=== PATIENT | female | born 1950 | race Caucasian/White ===

== ENCOUNTER 2016-12-26 23:53 | Inpatient (IN) | payer OTHER ==
[~2016-12-26] VITALS: Ht 160 cm; Wt 77.1 kg
[~2016-12-26 23:53] MED LIST: CELE50CA PO; DULO20CA PO; FLUT1DIS3 IH; LORA10CA PO; MONT4GRA PO; QUIN5TAB PO
[2016-12-27] MEDS ORDERED: ONDANSETRON HCL/PF 4 MG/2 ML VIAL IVP ONE (00:30)
[2016-12-27] MEDS ORDERED: IV NS 0.9% 1,000 ML BAG IV ONE ×2 (00:30→03:00)
[2016-12-27] MEDS ORDERED: MORPHINE SULFATE INJ 2 MG/ML DISP.SYRIN IV ONE (00:30)
[2016-12-27] MEDS ORDERED: MORPHINE SULFATE INJ 2 MG/ML DISP.SYRIN ONE ×2 (00:38→00:39)
[2016-12-27] MEDS ORDERED: MORPHINE SULFATE INJ 4 MG/ML DISP.SYRIN ONE (00:38)
[2016-12-27] MEDS ORDERED: IV NS 0.9% 1,000 ML ONE (00:39)
[2016-12-27] MEDS ORDERED: IV SET PRIMARY 1 EA INFUS.SET MC ONE (00:39)
[2016-12-27] MEDS ORDERED: ONDANSETRON HCL/PF 4 MG/2 ML VIAL ONE (00:39)
[2016-12-27 00:48] LABS: BASOPHILS % (AUTO) 0.1 % (0.0-2.0); DIFF TOTAL % 100 %; HEMATOCRIT 36 % (33-45); HEMOGLOBIN 12.2 g/dL (11.5-14.8); LYMPHOCYTES # (AUTO) 0.4 /CMM (0.8-4.8); LYMPHOCYTES % (AUTO) 1.9 % (20.0-44.0); MEAN CORPUSCULAR HEMOGLOBIN 29 PG (26.0-33.0); MEAN CORPUSCULAR HGB CONC 34 g/dl (31.0-36.0); MEAN CORPUSCULAR VOLUME 85 fL (82-100); MONOCYTES # (AUTO) 0.2 /CMM (0.1-1.30); MONOCYTES % (AUTO) 0.9 % (2.0-12.0); NEUTROPHILS # (AUTO) 20.8 /CMM (1.8-8.9); NEUTROPHILS % (AUTO) 97.1 % (43.0-81.0); PLATELET COUNT (AUTO) 461 /CMM (150-450); RED BLOOD CELL COUNT(AUTO) 4.22 MIL/uL (4.0-5.2); WHITE BLOOD COUNT (AUTO) 21.5 K/uL (4.3-11.0)
[2016-12-27 01:04] LABS: CALCIUM, SERUM 9.3 mg/dL (8.5-10.1); POTASSIUM 2.9 mmol/L (3.5-5.1)
[2016-12-27 01:09] LABS: ALBUMIN 3.6 g/dL (3.4-5.0); BILIRUBIN,DIRECT 0.2 mg/dL (0.0-0.2); BILIRUBIN,TOTAL 0.8 mg/dL (0.2-1.0); INDIRECT BILIRUBIN 0.6 mg/dL (0.0-1.1); TOTAL PROTEIN, SERUM 7.6 g/dL (6.4-8.2)
[2016-12-27 01:31] LABS: BAND % (MANUAL) 7 % (0.0-5.0); LYMPHOCYTES % (MANUAL) 4 % (16-48); PLATELET ESTIMATE ADEQUATE
[2016-12-27] MEDS ORDERED: CEFTRIAXONE 1GM BAG (ER ONLY) 50 ML IV ONE ×2 (02:39→03:00)
[2016-12-27] MEDS ORDERED: SECONDARY IV SET 1 EA INFUS.SET MC ONE ×6 (02:40→20:54)
[2016-12-27] MEDS ORDERED: IV SET PRIMARY PUMP SET 1 EA INFUS.SET MC ONE ×2 (02:40→04:50)
[2016-12-27] MEDS ORDERED: IV NS 0.9% 500 ML IV ONE (02:40)
[2016-12-27] MEDS ORDERED: IV NS 0.9% 2,000 ML ONE (02:40)
[2016-12-27 03:14] LABS: KETONES,URINE 1+ (NEGATIVE); LEUKOCYTE ESTERASE ,URINE 2+ (NEGATIVE)
[2016-12-27 03:15] LABS: ADD UA MICROSCOPIC YES
[2016-12-27 03:24] LABS: ADD URINE CULTURE YES; WBC,URINE 50-60 /HPF (0-3)
[2016-12-27] MEDS ORDERED: POTASSIUM CHLORIDE 20 MEQ TAB.PRT.SR PO ONE ×2 (03:30→03:47)
[2016-12-27 03:39] LABS: LACTIC ACID 3.5 mmol/L (0.4-2.0)
[2016-12-27 04:00] VITALS: BP 135/80
[2016-12-27 04:04] LABS: *LACTIC ACID REFLEX FLAG YES
[2016-12-27] MEDS ORDERED: IV NS 0.9% 1,000 ML IV PRN (04:14)
[2016-12-27] MEDS ORDERED: ONDANSETRON HCL/PF 4 MG/2 ML VIAL IVP PRN (04:30)
[2016-12-27] MEDS ORDERED: ZOLPIDEM TARTRATE 5 MG TABLET PO PRN (04:30)
[2016-12-27] MEDS ORDERED: GENTAMICIN 80 MG/2 ML VIAL ONE (04:51)
[2016-12-27] MEDS ORDERED: MEROPENEM 1 G VIAL IV ONE (04:52)
[2016-12-27] MEDS ORDERED: GENTAMICIN 120 MG in IV D5W 100 ML IV ONE (05:00)
[2016-12-27] MEDS ORDERED: IV NS 0.9% 100 ML IV ONE (05:00)
[2016-12-27] MEDS ORDERED: IV D5W 100 ML IV ONE (05:00)
[2016-12-27] MEDS: MEROPENEM 1 G in IV NS 0.9% 100 ML IV SCH ×3 (05:11→20:58)
[2016-12-27] MEDS ORDERED: HYDROCODONE/APAP 5/325MG 1 EACH TABLET ONE (05:17)
[2016-12-27] MEDS: HYDROCODONE/APAP 5/325MG 1 EACH TABLET PO PRN ×2 (05:20→09:10)
[2016-12-27 05:27] LABS: DIFF TOTAL % 100 %; HEMATOCRIT 33 % (33-45); HEMOGLOBIN 10.8 g/dL (11.5-14.8); LYMPHOCYTES # (AUTO) 0.9 /CMM (0.8-4.8); LYMPHOCYTES % (AUTO) 4.6 % (20.0-44.0); MEAN CORPUSCULAR HEMOGLOBIN 29 PG (26.0-33.0); MEAN CORPUSCULAR HGB CONC 33 g/dl (31.0-36.0); MEAN CORPUSCULAR VOLUME 87 fL (82-100); MONOCYTES % (AUTO) 5.2 % (2.0-12.0); NEUTROPHILS # (AUTO) 17.7 /CMM (1.8-8.9); NEUTROPHILS % (AUTO) 90.2 % (43.0-81.0); PLATELET COUNT (AUTO) 421 /CMM (150-450); RED BLOOD CELL COUNT(AUTO) 3.81 MIL/uL (4.0-5.2); WHITE BLOOD COUNT (AUTO) 19.7 K/uL (4.3-11.0)
[2016-12-27 05:39] LABS: CALCIUM, SERUM 8.5 mg/dL (8.5-10.1); PHOSPHORUS 2.1 mg/dL (2.5-4.9); POTASSIUM 3.1 mmol/L (3.5-5.1)
[2016-12-27 08:00] VITALS: BP 124/62
[2016-12-27] MEDS: DULOXETINE HCL 20 MG CAPSULE.DR PO SCH (08:32)
[2016-12-27] MEDS: PANTOPRAZOLE 40 MG TABLET.DR PO SCH (08:32)
[2016-12-27] MEDS: LORATADINE 10 MG TABLET PO SCH (08:32)
[2016-12-27] MEDS: CELECOXIB 100 MG CAPSULE PO SCH (09:00)
[2016-12-27] MEDS ORDERED: VANCOMYCIN 1 GM in IV D5W 250 ML IV SCH (09:00)
[2016-12-27] MEDS: FLUTICASONE/SALMETEROL DISKUS IH SCH ×2 (09:00→09:11)
[2016-12-27] MEDS: ALBUTEROL FS 2.5 MG/0.5 ML VIAL.NEB NEB SCH ×5 (09:50→23:30)
[2016-12-27] MEDS: IPRATROPIUM NEB FS 0.5 MG/2.5 ML AMPUL.NEB NEB SCH ×5 (09:50→23:30)
[2016-12-27] MEDS ORDERED: OXYC10TA72 PO (10:30)
[2016-12-27] MEDS ORDERED: METH500T6 PO (10:30)
[2016-12-27] MEDS ORDERED: OXYC10TA49 PO (10:30)
[2016-12-27] MEDS ORDERED: HYDR25TA4 PO (10:30)
[2016-12-27] MEDS ORDERED: BUDE90AE INH (10:30)
[2016-12-27] MEDS ORDERED: METF500T4 PO (10:30)
[2016-12-27] MEDS ORDERED: QUIN20TA31 PO (10:30)
[2016-12-27] MEDS ORDERED: MONT10TA22 PO (10:30)
[2016-12-27] MEDS ORDERED: FLUT9.9S BNOSTRILS (10:30)
[2016-12-27] MEDS ORDERED: DULO30CA51 PO (10:30)
[2016-12-27] MEDS ORDERED: [UNRECOGNIZED DRUG - CODE] PO (10:30)
[2016-12-27] MEDS: MORPHINE SULFATE INJ 2 MG/ML DISP.SYRIN IM PRN ×2 (10:59→15:35)
[2016-12-27] MEDS: QUINAPRIL PO SCH (11:30)
[2016-12-27] MEDS ORDERED: Potassium Phosphate meq 11 MEQ in IV D5W 100 ML IV ONE (12:00)
[2016-12-27] MEDS: Magnesium 1GM/D5W 100ML PREMIX 100 ML IV SCH ×2 (12:02→15:35)
[2016-12-27 16:00] VITALS: BP 106/67
[2016-12-27] MEDS ORDERED: FEE PK DOSING 1 MIN EA MC ONE (16:35)
[2016-12-27] MEDS ORDERED: Z GUARD REMEDY 4 OZ OINT TP PRN (18:30)
[2016-12-27] MEDS: MORPHINE SULFATE INJ 2 MG/ML DISP.SYRIN IV PRN ×2 (19:04→22:02)
[2016-12-27 20:00] VITALS: BP 135/73
[2016-12-27] MEDS: oxyCODONE HCL SR 10MG TAB.SR.12H PO SCH (21:00)
[2016-12-27] MEDS: VANCOMYCIN 0.75 GM in IV D5W 250 ML IV SCH (21:03)
[2016-12-27] MEDS ORDERED: SENNOSIDES 8.6 MG TABLET ONE (21:22)
[2016-12-27] MEDS: BLOOD SUGAR DIAGNOSTIC 1 EACH STRIP IN SCH (21:56)
[2016-12-27] MEDS: SENNOSIDES 8.6 MG TABLET PO SCH (21:57)
[2016-12-27] MEDS ORDERED: MONTELUKAST SODIUM (10MG) 10 MG TABLET PO SCH (22:00)
[2016-12-27] MEDS: MONTELUKAST SODIUM (10MG) 10 MG TABLET PO SCH (22:00)
[2016-12-27] MEDS: ACETAMINOPHEN 325 MG TABLET PO PRN (23:41)
[2016-12-28] MEDS: MORPHINE SULFATE INJ 2 MG/ML DISP.SYRIN IV PRN ×5 (02:54→20:08)
[2016-12-28] MEDS: IV NS 0.9% 1,000 ML IV PRN ×2 (02:55→14:37)
[2016-12-28] MEDS: ALBUTEROL FS 2.5 MG/0.5 ML VIAL.NEB NEB SCH ×6 (03:30→23:30)
[2016-12-28] MEDS: IPRATROPIUM NEB FS 0.5 MG/2.5 ML AMPUL.NEB NEB SCH ×6 (03:30→23:30)
[2016-12-28 04:00] VITALS: BP 131/54
[2016-12-28] MEDS: MEROPENEM 1 G in IV NS 0.9% 100 ML IV SCH ×3 (05:23→21:30)
[2016-12-28 07:10] LABS: BASOPHILS % (AUTO) 0.3 % (0.0-2.0); DIFF TOTAL % 100 %; EOSINOPHILS # (AUTO) 0.1 /CMM (0.0-0.7); EOSINOPHILS % (AUTO) 0.5 % (0.0-6.0); HEMATOCRIT 31 % (33-45); HEMOGLOBIN 10.4 g/dL (11.5-14.8); LYMPHOCYTES # (AUTO) 1.3 /CMM (0.8-4.8); LYMPHOCYTES % (AUTO) 9.3 % (20.0-44.0); MEAN CORPUSCULAR HEMOGLOBIN 29 PG (26.0-33.0); MEAN CORPUSCULAR HGB CONC 33 g/dl (31.0-36.0); MEAN CORPUSCULAR VOLUME 87 fL (82-100); MONOCYTES # (AUTO) 1.2 /CMM (0.1-1.30); MONOCYTES % (AUTO) 8.5 % (2.0-12.0); NEUTROPHILS # (AUTO) 11.5 /CMM (1.8-8.9); NEUTROPHILS % (AUTO) 81.4 % (43.0-81.0); PLATELET COUNT (AUTO) 295 /CMM (150-450); RED BLOOD CELL COUNT(AUTO) 3.63 MIL/uL (4.0-5.2); WHITE BLOOD COUNT (AUTO) 14.2 K/uL (4.3-11.0)
[2016-12-28 07:33] LABS: ALBUMIN 2.6 g/dL (3.4-5.0); BILIRUBIN,TOTAL 0.3 mg/dL (0.2-1.0); CALCIUM, SERUM 8.7 mg/dL (8.5-10.1); CREATININE 0.7 mg/dL (0.6-1.3); PHOSPHORUS 3.5 mg/dL (2.5-4.9); POTASSIUM 3.3 mmol/L (3.5-5.1); TOTAL PROTEIN, SERUM 6.4 g/dL (6.4-8.2)
[2016-12-28 08:00] VITALS: BP 147/82
[2016-12-28] MEDS ORDERED: QUINAPRIL HCL 10 MG TABLET PO SCH (09:00)
[2016-12-28] MEDS: FLUTICASONE/SALMETEROL DISKUS IH SCH (09:00)
[2016-12-28] MEDS ORDERED: DULOXETINE HCL 30 MG CAPSULE.DR PO SCH (09:00)
[2016-12-28] MEDS: CELECOXIB 100 MG CAPSULE PO SCH (09:00)
[2016-12-28] MEDS: BOOST GLUCOSE CONTROL VANILLA 237 ML BOX PO SCH ×2 (09:02→16:56)
[2016-12-28] MEDS: VANCOMYCIN 0.75 GM in IV D5W 250 ML IV SCH (09:02)
[2016-12-28] MEDS: BLOOD SUGAR DIAGNOSTIC 1 EACH STRIP IN SCH ×4 (09:02→21:59)
[2016-12-28] MEDS: LACTAID 1 TAB TABLET PO SCH ×3 (09:04→17:46)
[2016-12-28] MEDS: PANTOPRAZOLE 40 MG TABLET.DR PO SCH (09:05)
[2016-12-28] MEDS: oxyCODONE HCL SR 10MG TAB.SR.12H PO SCH ×2 (09:05→21:00)
[2016-12-28] MEDS: DULOXETINE HCL 20 MG CAPSULE.DR PO SCH (09:06)
[2016-12-28] MEDS: LORATADINE 10 MG TABLET PO SCH (09:06)
[2016-12-28] MEDS: HYDROCHLOROTHIAZIDE 25 MG TABLET PO SCH (09:08)
[2016-12-28 09:18] LABS: THYROID STIMULATING HORMONE 1.415 uIU/mL (0.358-3.74)
[2016-12-28] MEDS ORDERED: DULOXETINE HCL 30 MG CAPSULE.DR PO ONE (10:15)
[2016-12-28] MEDS ORDERED: POTASSIUM CHLORIDE 20 MEQ TAB.PRT.SR PO ONE (10:30)
[2016-12-28] MEDS: METFORMIN 500 MG TABLET PO SCH ×2 (11:19→16:57)
[2016-12-28] MEDS: QUINAPRIL PO SCH (11:19)
[2016-12-28] MEDS: METHOCARBAMOL (500MG) 500 MG TABLET PO PRN ×2 (12:28→16:56)
[2016-12-28] MEDS: LOPREEZA PO SCH (12:57)
[2016-12-28] MEDS: ACETAMINOPHEN 325 MG TABLET PO PRN (13:01)
[2016-12-28 16:00] VITALS: BP 105/60
[2016-12-28] MEDS ORDERED: ENOXAPARIN SODIUM 30 MG/0.3 ML DISP.SYRIN SQ SCH (16:00)
[2016-12-28] MEDS: oxyCODONE IR immediate release 5 MG CAPSULE PO PRN (16:56)
[2016-12-28 20:00] VITALS: BP 116/79
[2016-12-28] MEDS: BISACODYL (5 MG) 5 MG TABLET.DR PO PRN (21:30)
[2016-12-28] MEDS: ENOXAPARIN SODIUM 40 MG/0.4 ML DISP.SYRIN SQ SCH (21:30)
[2016-12-28] MEDS: MONTELUKAST SODIUM (10MG) 10 MG TABLET PO SCH (21:30)
[2016-12-28] MEDS: SENNOSIDES 8.6 MG TABLET PO SCH (21:31)
[2016-12-28] MEDS: VANCOMYCIN 1 GM in IV D5W 250 ML IV SCH (21:59)
[2016-12-29] MEDS: IV NS 0.9% 1,000 ML IV PRN ×2 (00:46→13:07)
[2016-12-29] MEDS: MORPHINE SULFATE INJ 2 MG/ML DISP.SYRIN IV PRN (02:08)
[2016-12-29 04:00] VITALS: BP 142/82
[2016-12-29] MEDS: ALBUTEROL FS 2.5 MG/0.5 ML VIAL.NEB NEB SCH ×6 (04:00→23:12)
[2016-12-29] MEDS: IPRATROPIUM NEB FS 0.5 MG/2.5 ML AMPUL.NEB NEB SCH ×6 (04:00→23:12)
[2016-12-29] MEDS: ACETAMINOPHEN 325 MG TABLET PO PRN (04:03)
[2016-12-29] MEDS: MEROPENEM 1 G in IV NS 0.9% 100 ML IV SCH ×2 (04:50→13:07)
[2016-12-29] MEDS: BLOOD SUGAR DIAGNOSTIC 1 EACH STRIP IN SCH ×4 (06:39→21:02)
[2016-12-29 06:56] LABS: BASOPHILS % (AUTO) 0.3 % (0.0-2.0); DIFF TOTAL % 100 %; EOSINOPHILS # (AUTO) 0.2 /CMM (0.0-0.7); EOSINOPHILS % (AUTO) 1.8 % (0.0-6.0); HEMATOCRIT 29 % (33-45); HEMOGLOBIN 9.8 g/dL (11.5-14.8); LYMPHOCYTES # (AUTO) 1.2 /CMM (0.8-4.8); LYMPHOCYTES % (AUTO) 13.6 % (20.0-44.0); MEAN CORPUSCULAR HEMOGLOBIN 29 PG (26.0-33.0); MEAN CORPUSCULAR HGB CONC 34 g/dl (31.0-36.0); MEAN CORPUSCULAR VOLUME 86 fL (82-100); MONOCYTES # (AUTO) 0.7 /CMM (0.1-1.30); MONOCYTES % (AUTO) 8.4 % (2.0-12.0); NEUTROPHILS # (AUTO) 6.6 /CMM (1.8-8.9); NEUTROPHILS % (AUTO) 75.9 % (43.0-81.0); PLATELET COUNT (AUTO) 248 /CMM (150-450); RED BLOOD CELL COUNT(AUTO) 3.42 MIL/uL (4.0-5.2); WHITE BLOOD COUNT (AUTO) 8.6 K/uL (4.3-11.0)
[2016-12-29 08:00] VITALS: BP_SYST 140; BP_SYST 149; BP_DIAS 87
[2016-12-29] MEDS: METFORMIN 500 MG TABLET PO SCH ×2 (08:49→17:17)
[2016-12-29] MEDS: oxyCODONE HCL SR 10MG TAB.SR.12H PO SCH ×2 (08:51→20:54)
[2016-12-29] MEDS: CELECOXIB 100 MG CAPSULE PO SCH (08:52)
[2016-12-29] MEDS: LORATADINE 10 MG TABLET PO SCH (08:52)
[2016-12-29] MEDS: PANTOPRAZOLE 40 MG TABLET.DR PO SCH (08:52)
[2016-12-29] MEDS: DULOXETINE HCL 30 MG CAPSULE.DR PO SCH (08:53)
[2016-12-29] MEDS: HYDROCHLOROTHIAZIDE 25 MG TABLET PO SCH (08:53)
[2016-12-29] MEDS: BOOST GLUCOSE CONTROL VANILLA 237 ML BOX PO SCH ×2 (08:54→17:20)
[2016-12-29] MEDS: LACTAID 1 TAB TABLET PO SCH ×3 (08:54→17:17)
[2016-12-29] MEDS: FLUTICASONE/SALMETEROL DISKUS IH SCH (08:54)
[2016-12-29] MEDS: FLUTICASONE PROPIONATE 16 GM BOTTLE NS SCH (08:55)
[2016-12-29 09:40] LABS: CALCIUM, SERUM 8.9 mg/dL (8.5-10.1); CREATININE 0.7 mg/dL (0.6-1.3); POTASSIUM 3.4 mmol/L (3.5-5.1)
[2016-12-29] MEDS: QUINAPRIL PO SCH (10:30)
[2016-12-29] MEDS: LOPREEZA PO SCH (10:30)
[2016-12-29] MEDS: VANCOMYCIN 1 GM in IV D5W 250 ML IV SCH (10:39)
[2016-12-29] MEDS: oxyCODONE IR immediate release 5 MG CAPSULE PO PRN (14:45)
[2016-12-29 16:00] VITALS: BP 115/62
[2016-12-29] MEDS ORDERED: SECONDARY IV SET 1 EA INFUS.SET MC ONE (17:11)
[2016-12-29] MEDS: LEVOFLOXACIN 500 MG /D5W 100ML 500 MG in PREMIX 1 EA IV SCH (17:17)
[2016-12-29] MEDS: PULMICORT FLEXHALER INH SCH (17:20)
[2016-12-29] MEDS ORDERED: [UNRECOGNIZED DRUG - OTHER] INH SCH (18:00)
[2016-12-29] MEDS ORDERED: BUDESONIDE INH SCH (18:00)
[2016-12-29 20:00] VITALS: BP_SYST 107; BP_SYST 118; BP_SYST 96; BP_DIAS 52; BP_DIAS 68
[2016-12-29] MEDS: METHOCARBAMOL (500MG) 500 MG TABLET PO PRN (21:00)
[2016-12-29] MEDS: ENOXAPARIN SODIUM 40 MG/0.4 ML DISP.SYRIN SQ SCH (21:00)
[2016-12-29] MEDS: MONTELUKAST SODIUM (10MG) 10 MG TABLET PO SCH (21:03)
[2016-12-29] MEDS: SENNOSIDES 8.6 MG TABLET PO SCH (21:03)
[2016-12-30] MEDS: IPRATROPIUM NEB FS 0.5 MG/2.5 ML AMPUL.NEB NEB SCH ×6 (03:30→23:30)
[2016-12-30] MEDS: ALBUTEROL FS 2.5 MG/0.5 ML VIAL.NEB NEB SCH ×6 (03:30→23:30)
[2016-12-30 04:00] VITALS: BP 158/80
[2016-12-30] MEDS: METHOCARBAMOL (500MG) 500 MG TABLET PO PRN (05:31)
[2016-12-30] MEDS: oxyCODONE IR immediate release 5 MG CAPSULE PO PRN ×2 (05:31→11:43)
[2016-12-30] MEDS: BLOOD SUGAR DIAGNOSTIC 1 EACH STRIP IN SCH ×4 (06:51→21:11)
[2016-12-30 08:00] VITALS: BP 124/83
[2016-12-30] MEDS: BOOST GLUCOSE CONTROL VANILLA 237 ML BOX PO SCH ×2 (08:00→17:00)
[2016-12-30 08:11] LABS: BASOPHILS % (AUTO) 0.2 % (0.0-2.0); DIFF TOTAL % 100 %; EOSINOPHILS # (AUTO) 0.3 /CMM (0.0-0.7); EOSINOPHILS % (AUTO) 4.7 % (0.0-6.0); HEMATOCRIT 29 % (33-45); HEMOGLOBIN 9.9 g/dL (11.5-14.8); LYMPHOCYTES # (AUTO) 1.4 /CMM (0.8-4.8); LYMPHOCYTES % (AUTO) 18.7 % (20.0-44.0); MEAN CORPUSCULAR HEMOGLOBIN 29 PG (26.0-33.0); MEAN CORPUSCULAR HGB CONC 34 g/dl (31.0-36.0); MEAN CORPUSCULAR VOLUME 86 fL (82-100); MONOCYTES % (AUTO) 13.2 % (2.0-12.0); NEUTROPHILS # (AUTO) 4.6 /CMM (1.8-8.9); NEUTROPHILS % (AUTO) 63.2 % (43.0-81.0); PLATELET COUNT (AUTO) 373 /CMM (150-450); RED BLOOD CELL COUNT(AUTO) 3.44 MIL/uL (4.0-5.2); WHITE BLOOD COUNT (AUTO) 7.3 K/uL (4.3-11.0)
[2016-12-30 08:16] LABS: CALCIUM, SERUM 9.3 mg/dL (8.5-10.1); CREATININE 0.7 mg/dL (0.6-1.3); POTASSIUM 3.4 mmol/L (3.5-5.1)
[2016-12-30] MEDS: FLUTICASONE/SALMETEROL DISKUS IH SCH (08:38)
[2016-12-30] MEDS: FLUTICASONE PROPIONATE 16 GM BOTTLE NS SCH (08:39)
[2016-12-30] MEDS: LOPREEZA PO SCH (08:39)
[2016-12-30] MEDS: QUINAPRIL PO SCH (08:40)
[2016-12-30] MEDS: LACTAID 1 TAB TABLET PO SCH ×3 (08:41→18:10)
[2016-12-30] MEDS: PULMICORT FLEXHALER INH SCH ×2 (08:42→16:52)
[2016-12-30] MEDS: PANTOPRAZOLE 40 MG TABLET.DR PO SCH (08:42)
[2016-12-30] MEDS: LORATADINE 10 MG TABLET PO SCH (08:43)
[2016-12-30] MEDS: CELECOXIB 100 MG CAPSULE PO SCH (08:43)
[2016-12-30] MEDS: METFORMIN 500 MG TABLET PO SCH ×2 (08:43→16:52)
[2016-12-30] MEDS: DULOXETINE HCL 30 MG CAPSULE.DR PO SCH (08:43)
[2016-12-30] MEDS: oxyCODONE HCL SR 10MG TAB.SR.12H PO SCH ×2 (08:44→20:02)
[2016-12-30] MEDS: HYDROCHLOROTHIAZIDE 25 MG TABLET PO SCH (08:46)
[2016-12-30] MEDS ORDERED: POTASSIUM CHLORIDE 20 MEQ TAB.PRT.SR PO SCH (11:30)
[2016-12-30] MEDS: LEVOFLOXACIN 500 MG /D5W 100ML 500 MG in PREMIX 1 EA IV SCH (16:51)
[2016-12-30] MEDS: MORPHINE SULFATE INJ 2 MG/ML DISP.SYRIN IV PRN (16:53)
[2016-12-30 20:00] VITALS: BP 130/77
[2016-12-30] MEDS: ENOXAPARIN SODIUM 40 MG/0.4 ML DISP.SYRIN SQ SCH (20:01)
[2016-12-30] MEDS ORDERED: MORPHINE SULFATE INJ 2 MG/ML DISP.SYRIN IV PRN (21:00)
[2016-12-30] MEDS: SENNOSIDES 8.6 MG TABLET PO SCH (21:08)
[2016-12-30] MEDS: MONTELUKAST SODIUM (10MG) 10 MG TABLET PO SCH (21:08)
[2016-12-31] MEDS: oxyCODONE IR immediate release 5 MG CAPSULE PO PRN ×2 (00:20→06:41)
[2016-12-31] MEDS: ALBUTEROL FS 2.5 MG/0.5 ML VIAL.NEB NEB SCH ×6 (03:30→23:30)
[2016-12-31] MEDS: IPRATROPIUM NEB FS 0.5 MG/2.5 ML AMPUL.NEB NEB SCH ×6 (03:30→23:30)
[2016-12-31 04:00] VITALS: BP 120/67
[2016-12-31] MEDS: BLOOD SUGAR DIAGNOSTIC 1 EACH STRIP IN SCH ×4 (06:36→22:00)
[2016-12-31 07:24] LABS: BASOPHILS % (AUTO) 0.2 % (0.0-2.0); DIFF TOTAL % 100 %; EOSINOPHILS # (AUTO) 0.3 /CMM (0.0-0.7); HEMATOCRIT 31 % (33-45); HEMOGLOBIN 10.5 g/dL (11.5-14.8); LYMPHOCYTES % (AUTO) 18.8 % (20.0-44.0); MEAN CORPUSCULAR HEMOGLOBIN 29 PG (26.0-33.0); MEAN CORPUSCULAR HGB CONC 34 g/dl (31.0-36.0); MEAN CORPUSCULAR VOLUME 85 fL (82-100); MONOCYTES # (AUTO) 1.7 /CMM (0.1-1.30); MONOCYTES % (AUTO) 15.5 % (2.0-12.0); NEUTROPHILS # (AUTO) 6.8 /CMM (1.8-8.9); NEUTROPHILS % (AUTO) 62.5 % (43.0-81.0); PLATELET COUNT (AUTO) 301 /CMM (150-450); RED BLOOD CELL COUNT(AUTO) 3.68 MIL/uL (4.0-5.2); WHITE BLOOD COUNT (AUTO) 10.8 K/uL (4.3-11.0)
[2016-12-31 08:00] VITALS: BP 138/86
[2016-12-31] MEDS: BOOST GLUCOSE CONTROL VANILLA 237 ML BOX PO SCH ×2 (08:00→17:00)
[2016-12-31 08:22] LABS: CALCIUM, SERUM 8.9 mg/dL (8.5-10.1); POTASSIUM 3.5 mmol/L (3.5-5.1)
[2016-12-31] MEDS: PANTOPRAZOLE 40 MG TABLET.DR PO SCH (08:59)
[2016-12-31] MEDS: LACTAID 1 TAB TABLET PO SCH ×3 (08:59→17:28)
[2016-12-31] MEDS: PULMICORT FLEXHALER INH SCH ×2 (09:00→17:26)
[2016-12-31] MEDS: CELECOXIB 100 MG CAPSULE PO SCH (09:00)
[2016-12-31] MEDS: FLUTICASONE PROPIONATE 16 GM BOTTLE NS SCH (09:00)
[2016-12-31] MEDS: FLUTICASONE/SALMETEROL DISKUS IH SCH (09:00)
[2016-12-31] MEDS: METFORMIN 500 MG TABLET PO SCH ×2 (09:01→17:26)
[2016-12-31] MEDS: LORATADINE 10 MG TABLET PO SCH (09:01)
[2016-12-31] MEDS: DULOXETINE HCL 30 MG CAPSULE.DR PO SCH (09:01)
[2016-12-31] MEDS: LOPREEZA PO SCH (09:01)
[2016-12-31] MEDS: HYDROCHLOROTHIAZIDE 25 MG TABLET PO SCH (09:03)
[2016-12-31] MEDS: oxyCODONE HCL SR 10MG TAB.SR.12H PO SCH ×2 (09:04→20:22)
[2016-12-31] MEDS: QUINAPRIL PO SCH (12:33)
[2016-12-31] MEDS: BISACODYL (5 MG) 5 MG TABLET.DR PO PRN (12:33)
[2016-12-31 16:00] VITALS: BP 135/75
[2016-12-31] MEDS: LEVOFLOXACIN 500 MG /D5W 100ML 500 MG in PREMIX 1 EA IV SCH (17:26)
[2016-12-31 20:00] VITALS: BP 120/76
[2016-12-31] MEDS: MONTELUKAST SODIUM (10MG) 10 MG TABLET PO SCH (21:35)
[2016-12-31] MEDS: SENNOSIDES 8.6 MG TABLET PO SCH (21:36)
[2016-12-31] MEDS: ENOXAPARIN SODIUM 40 MG/0.4 ML DISP.SYRIN SQ SCH (21:37)
[2017-01-01] MEDS: IPRATROPIUM NEB FS 0.5 MG/2.5 ML AMPUL.NEB NEB SCH ×4 (03:30→15:30)
[2017-01-01] MEDS: ALBUTEROL FS 2.5 MG/0.5 ML VIAL.NEB NEB SCH ×4 (03:30→15:30)
[2017-01-01 04:00] VITALS: BP 115/58
[2017-01-01] MEDS: PANTOPRAZOLE 40 MG TABLET.DR PO SCH (06:33)
[2017-01-01 06:57] LABS: BASOPHILS % (AUTO) 0.2 % (0.0-2.0); DIFF TOTAL % 100 %; EOSINOPHILS # (AUTO) 0.3 /CMM (0.0-0.7); EOSINOPHILS % (AUTO) 2.8 % (0.0-6.0); HEMATOCRIT 33 % (33-45); LYMPHOCYTES # (AUTO) 1.9 /CMM (0.8-4.8); LYMPHOCYTES % (AUTO) 18.8 % (20.0-44.0); MEAN CORPUSCULAR HEMOGLOBIN 29 PG (26.0-33.0); MEAN CORPUSCULAR HGB CONC 34 g/dl (31.0-36.0); MEAN CORPUSCULAR VOLUME 85 fL (82-100); MONOCYTES % (AUTO) 10.2 % (2.0-12.0); NEUTROPHILS # (AUTO) 6.8 /CMM (1.8-8.9); PLATELET COUNT (AUTO) 467 /CMM (150-450); RED BLOOD CELL COUNT(AUTO) 3.86 MIL/uL (4.0-5.2)
[2017-01-01] MEDS: BLOOD SUGAR DIAGNOSTIC 1 EACH STRIP IN SCH ×2 (07:09→12:00)
[2017-01-01 07:11] LABS: CALCIUM, SERUM 9.9 mg/dL (8.5-10.1); CREATININE 0.8 mg/dL (0.6-1.3); POTASSIUM 3.4 mmol/L (3.5-5.1)
[2017-01-01 08:00] VITALS: BP 121/81
[2017-01-01] MEDS: LACTAID 1 TAB TABLET PO SCH ×2 (08:00→13:00)
[2017-01-01] MEDS: FLUTICASONE/SALMETEROL DISKUS IH SCH (09:00)
[2017-01-01] MEDS: QUINAPRIL PO SCH (09:00)
[2017-01-01] MEDS: LOPREEZA PO SCH (09:32)
[2017-01-01] MEDS: METFORMIN 500 MG TABLET PO SCH (09:32)
[2017-01-01 09:34] VITALS: BP 121/81
[2017-01-01] MEDS: HYDROCHLOROTHIAZIDE 25 MG TABLET PO SCH (09:34)
[2017-01-01] MEDS: FLUTICASONE PROPIONATE 16 GM BOTTLE NS SCH (09:35)
[2017-01-01] MEDS: oxyCODONE IR immediate release 5 MG CAPSULE PO PRN (09:37)
[2017-01-01] MEDS: LORATADINE 10 MG TABLET PO SCH (09:38)
[2017-01-01] MEDS: DULOXETINE HCL 30 MG CAPSULE.DR PO SCH (09:38)
[2017-01-01] MEDS: CELECOXIB 100 MG CAPSULE PO SCH (09:39)
[2017-01-01] MEDS: PULMICORT FLEXHALER INH SCH (09:43)
[2017-01-01] MEDS: oxyCODONE HCL SR 10MG TAB.SR.12H PO SCH (09:44)
[2017-01-01] MEDS ORDERED: POTASSIUM CHLORIDE 20 MEQ TAB.PRT.SR PO ONE (12:00)
== END 2017-01-01 15:51 | disposition home or self-care (01) | DRG 872 ==
LOC: ER 23:55 → TELE1 12-27 03:13 → MEDSG1 12-27 05:20
PROVIDERS: ADMIT Nurse Practitioner Acute Care; ATTEND Internal Medicine
PROC: 05H533Z Insertion of Infusion Device into Right Subclavian Vein, Percutaneous Approach (ICD-10-PCS; principal; 2016-12-28)
DX: A41.9 Sepsis, unspecified organism (principal); N10 Acute pyelonephritis; E87.2 Acidosis; N13.6 Pyonephrosis; I10 Essential (primary) hypertension; E87.6 Hypokalemia; G89.4 Chronic pain syndrome; M41.9 Scoliosis, unspecified; M54.5 Low back pain; J45.909 Unspecified asthma, uncomplicated; B96.20 Unspecified Escherichia coli [E. coli] as the cause of diseases classified elsewhere; E83.39 Other disorders of phosphorus metabolism; E83.42 Hypomagnesemia; K57.30 Diverticulosis of large intestine without perforation or abscess without bleeding; N83.202 Unspecified ovarian cyst, left side
CPT/HCPCS: 36415; 80048-TC; 80053-TC; 80061-TC; 80076-TC; 80202-TC; 81000-TC; 82962-TC; 83605-TC; 83690-TC; 83735-TC; 84100-TC; 84443-TC; 85025-TC; 87040-TC; 87081-TC; 87086-TC; 87186-TC; 97001-TC; 97116-TC; 97530-TC; A4216; A4606; A6253; A6402; A6403; J0696; J1580; J1650; J1956; J2185; J2270; J2405; J3370; J3475; J3490; J7030; J7040; J7060; Z7610